=== PATIENT | male | born 1975 | race Caucasian/White ===

== ENCOUNTER → 2016-11-07 | Outpatient (CLI) | payer OTHER ==
[2015-06-17 20:45] VITALS: BP 148/91
--- NOTE | 2016-11-08 09:21 | RAD ---
Acute abdominal series with single view chest Indication: Abdominal pain Comparison: 06/17/2015 Findings: The cardiac silhouette is unremarkable. The lungs are clear. The bowel gas pattern is norm al. No free air or suspicious calcifications identified. Impression: No evidence of acute chest or abdominal pathology. Reported By:
== END ==
LOC: RAD 17:43
PROVIDERS: ATTEND Obstetrics & Gynecology Obstetrics
DX: R10.84 Generalized abdominal pain (principal)
CPT/HCPCS: 74022

== ENCOUNTER → 2016-11-08 | Outpatient (CLI) | payer OTHER ==
[2015-06-17 20:45] VITALS: BP 148/91
--- NOTE | 2016-11-08 12:20 | US ---
History: Epigastric, upper abdominal pain and bloating. Study: Right upper quadrant abdominal ultrasound Comparison: None Technique: Multiple andrea scale and color flow Doppler images of the right upper quadrant were obtain ed. Findings: Liver appears homogeneous but demonstrates mildly increased echogenicity suggesting hepatic steatosi s. No focal intraparenchymal mass or intrahepatic biliary ductal dilatation can be observed. The g allbladder fails to demonstrate evidence for cholelithiasis or layering sludge. The common bile antoinette t measures 5 mm. No pericholecystic fluid or gallbladder wall thickening can be observed. The right kidney appears normal in size without focal parenchymal mass or nephrolithiasis. The righ t kidney measurers 8.9 x 6.4 x 7.1 cm. Lower pole of the right kidney was partially obscured by shad owing and the length measurement is likely a slight underestimated. No hydronephrosis or perirenal f luid can be observed. The pancreas is largely obscured by overlying bowel gas. IMPRESSION: 1. Mild increased echogenicity of the liver compatible with hepatic steatosis. 2. Normal appearance of the gallbladder. Reported By:
== END ==
LOC: RAD 09:50
PROVIDERS: ATTEND Obstetrics & Gynecology Obstetrics
DX: R10.11 Right upper quadrant pain (principal)
CPT/HCPCS: 76705